=== PATIENT | female | born 1995 | race African-American/Black ===

== ENCOUNTER 2018-06-10 23:42 | Emergency (ER) | payer OTHER, BC ==
[~2018-06-10] VITALS: Ht 180.3 cm; Wt 74.1 kg
[2018-06-10 23:57] VITALS: Ht 180.3 cm; Wt 74.1 kg
[2018-06-11 00:47] LABS: BASOPHILS 0.2 % (0-2); EOSINOPHILS 1.4 % (0-7); HEMATOCRIT 38.3 % (36.0-48.0); HEMOGLOBIN 12.6 g/dL (12-16); IMMATURE GRANULOCYTES 0.2 % (0-5); LYMPHOCYTES 33.9 % (15-50); MCH 27.5 pg (26.0-34.0); MCHC 32.9 g/dL (31.0-37.0); MCV 83.4 fL (80.0-100.0); MEAN PLATELET VOLUME 10.9 fL (7.4-10.4); MONOCYTES 7.5 % (2-11); NEUTROPHILS 56.8 % (40-80); PLATELET COUNT 289 10x3/uL (130-400); RBC 4.59 10x6/uL (4.00-5.40); RDW 13.4 % (11.5-14.5); WBC 10.4 10x3/uL (4.8-10.8)
[2018-06-11 01:17] LABS: ALBUMIN 3.5 g/dL (3.4-5.0); ALKALINE PHOSPHATASE 56 U/L (46-116); ALT (SGPT) 15 U/L (10-68); BILIRUBIN - TOTAL 0.21 mg/dL (0.2-1.3); CALC OSMOLALITY 276 mosm/kg (275-300); CALCIUM 8.5 mg/dL (8.5-10.1); CARBON DIOXIDE 28.4 mmol/L (21.0-32.0); CHLORIDE - SERUM 104 mmol/L (98-107); CREATININE - SERUM 0.9 mg/dL (0.6-1.3); GLUCOSE 93 mg/dL (74-106); POTASSIUM - SERUM 3.8 mmol/L (3.5-5.1); PROTEIN - SERUM 7.8 g/dL (6.4-8.2); SODIUM 139 mmol/L (136-145); UREA NITROGEN 10 mg/dL (7-18); eGFR NON AFRICAN AMERICAN 81 mL/min (90-120)
[2018-06-11 01:33] LABS: CKMB 0.5 U/L (0.0-3.6); CREATINE KINASE 131 UL (21-215)
[2018-06-11 01:39] LABS: TROPONIN-I < 0.017 ng/mL (0.000-0.060)
[2018-06-11 01:49] LABS: HCG URINE NEGATIVE (NEGATIVE)
[2018-06-11 02:04] LABS: APPEARANCE HAZY (CLEAR); BILIRUBIN NEGATIVE (NEGATIVE); COLOR YELLOW (YELLOW); GLUCOSE NEGATIVE (NEGATIVE); KETONE NEGATIVE (NEGATIVE); NITRITE NEGATIVE (NEGATIVE); PROTEIN NEGATIVE (NEGATIVE); SPECIFIC GRAVITY 1.015 (1.005-1.020); UROBILINOGEN NORMAL (NORMAL)
[2018-06-11 02:06] LABS: BACTERIA FEW /hpf (NONE SEEN); EPITHELIAL CELLS 0-5 /hpf (0-5); RED CELLS - URINE NONE SEEN /hpf (0-5); WHITE CELLS - URINE 0-5 /hpf (0-5)
[2018-06-11 02:52] VITALS: BP 102/71
== END 2018-06-11 02:52 | disposition home or self-care (01) ==
LOC: D.ER 23:42
PROVIDERS: Family Medicine
DX: R07.9 Chest pain, unspecified (principal); F41.9 Anxiety disorder, unspecified

== ENCOUNTER 2018-07-15 21:04 | Emergency (ER) | payer OTHER, BC ==
[~2018-07-15] VITALS: Ht 180.3 cm; Wt 72.7 kg
[2018-07-15 21:09] VITALS: Ht 180.3 cm; Wt 72.7 kg
[2018-07-15 21:48] LABS: HCG URINE NEGATIVE (NEGATIVE)
[2018-07-15] MEDS ORDERED: ACETAMINOPHEN500 M1 PO (23:11)
[2018-07-15] MEDS ORDERED: IBUPROFEN800 MG PO (23:11)
[2018-07-15] MEDS ORDERED: CYCLOBENZAPRINE10 MG PO (23:11)
[2018-07-15 23:35] VITALS: BP 102/78
== END 2018-07-15 23:35 | disposition home or self-care (01) ==
LOC: D.ER 21:04
PROVIDERS: Family Medicine
DX: S00.83XA Contusion of other part of head, initial encounter (principal); Y04.2XXA Assault by strike against or bumped into by another person, initial encounter; Y93.89 Activity, other specified; Y92.89 Other specified places as the place of occurrence of the external cause; M79.1 Myalgia

== ENCOUNTER → 2018-07-18 08:44 | Outpatient (CLI) | payer OTHER, BC ==
[2018-07-15 21:09] VITALS: BMI 22.3
[~2018-07-18 08:44] MED LIST: ACETAMINOPHEN500 M1 PO; CYCLOBENZAPRINE10 MG PO; IBUPROFEN800 MG PO
== END | disposition home or self-care (01) ==
LOC: D.CT 08:44
DX: S00.83XA Contusion of other part of head, initial encounter (principal); X58.XXXA Exposure to other specified factors, initial encounter

== ENCOUNTER 2018-11-19 15:11 | Emergency (ER) | payer OTHER, BC ==
[~2018-11-19] VITALS: Ht 180.3 cm; Wt 75.5 kg
[2018-11-19 15:28] VITALS: Ht 180.3 cm; Wt 75.5 kg
[2018-11-19] MEDS ORDERED: TOPAMAX50 MG PO (15:31)
[2018-11-19 16:32] LABS: BASOPHILS 0.1 % (0-2); EOSINOPHILS 1.6 % (0-7); HEMATOCRIT 36.3 % (36.0-48.0); HEMOGLOBIN 11.9 g/dL (12-16); IMMATURE GRANULOCYTES 0.1 % (0-5); LYMPHOCYTES 33.7 % (15-50); MCH 27.2 pg (26.0-34.0); MCHC 32.8 g/dL (31.0-37.0); MCV 82.9 fL (80.0-100.0); MEAN PLATELET VOLUME 11.1 fL (7.4-10.4); MONOCYTES 5.8 % (2-11); NEUTROPHILS 58.7 % (40-80); PLATELET COUNT 320 10x3/uL (130-400); RBC 4.38 10x6/uL (4.00-5.40); RDW 13.9 % (11.5-14.5); WBC 8.8 10x3/uL (4.8-10.8)
[2018-11-19 16:50] LABS: ALBUMIN 3.5 g/dL (3.4-5.0); ANION GAP 14.4 mmol/L (8-16); BILIRUBIN - TOTAL 0.17 mg/dL (0.2-1.3); CALCIUM 8.5 mg/dL (8.5-10.1); CARBON DIOXIDE 24.1 mmol/L (21.0-32.0); CREATININE - SERUM 1.1 mg/dL (0.6-1.3); POTASSIUM - SERUM 3.5 mmol/L (3.5-5.1); PROTEIN - SERUM 7.6 g/dL (6.4-8.2)
[2018-11-19 16:52] LABS: APPEARANCE CLEAR (CLEAR); COLOR ORANGE (YELLOW)
[2018-11-19 16:54] LABS: EPITHELIAL CELLS 0-5 /hpf (0-5); RED CELLS - URINE 0-5 /hpf (0-5)
[2018-11-19 16:55] LABS: BACTERIA FEW /hpf (NONE SEEN)
[2018-11-19 17:04] LABS: HCG URINE NEGATIVE (NEGATIVE)
[2018-11-19 18:21] LABS: AMYLASE - SERUM 34 U/L (25-115); LIPASE 115 U/L (73-393)
[2018-11-19] MEDS ORDERED: MACROBID100 MG PO (19:33)
[2018-11-19 20:17] VITALS: BP 119/62
== END 2018-11-19 20:17 | disposition home or self-care (01) ==
LOC: D.ER 15:11
PROVIDERS: Family Medicine
DX: N39.0 Urinary tract infection, site not specified (principal); K59.00 Constipation, unspecified

== ENCOUNTER 2019-01-16 07:40 | Emergency (ER) | payer OTHER, BC ==
[~2019-01-16] VITALS: Ht 149.9 cm; Wt 72.7 kg
[~2019-01-16 07:40] MED LIST changes: +MACROBID100 MG PO; +TOPAMAX50 MG PO
[2019-01-16 07:48] VITALS: BP 115/61; Ht 149.9 cm; Wt 72.7 kg
[2019-01-16] MEDS ORDERED: XOFLUZA40 MG PO (08:31)
== END 2019-01-16 08:41 | disposition home or self-care (01) ==
LOC: D.ER 07:40
DX: J09.X2 Influenza due to identified novel influenza A virus with other respiratory manifestations (principal); R53.81 Other malaise; R53.83 Other fatigue; M79.18 Myalgia, other site

== ENCOUNTER 2019-02-17 18:07 | Emergency (ER) | payer OTHER, BC ==
[~2019-02-17] VITALS: Ht 149.9 cm; Wt 72.7 kg
[~2019-02-17 18:07] MED LIST changes: +XOFLUZA40 MG PO
[2019-02-17 18:16] VITALS: Ht 149.9 cm; Wt 72.7 kg
[2019-02-17 19:32] LABS: HCG SERUM NEGATIVE (NEGATIVE)
[2019-02-17 20:48] LABS: APPEARANCE CLEAR (CLEAR); BILIRUBIN NEGATIVE (NEGATIVE); COLOR YELLOW (YELLOW); GLUCOSE NEGATIVE (NEGATIVE); KETONE NEGATIVE (NEGATIVE); NITRITE NEGATIVE (NEGATIVE); PROTEIN NEGATIVE (NEGATIVE); SPECIFIC GRAVITY 1.015 (1.005-1.020); UROBILINOGEN NORMAL (NORMAL)
[2019-02-17 21:48] VITALS: BP 122/81
== END 2019-02-17 21:48 | disposition home or self-care (01) ==
LOC: D.ER 18:07
PROVIDERS: Family Medicine
DX: R53.1 Weakness (principal); E86.0 Dehydration